=== PATIENT | female | born 1975 | race Caucasian/White ===

== ENCOUNTER → 2016-06-24 | Emergency (ER) | payer MEDICAID ==
[~2016-06-24] VITALS: Ht 157.5 cm; Wt 59.0 kg
[~2016-06-24] MED LIST: HALOPERIDOL LACTATE 5 MG/ML INJ VIAL IM ONE; HYDROcodone-ACET 5/325MG TAB PO ONE; IBUPROFEN 600 MG TAB PO ONE; KETOROLAC TROMETH 30 MG/ML 1ML VIAL IV ONE; KETOROLAC TROMETH 30 MG/ML 1ML VIAL ONE; LORazepam 2MG/ML-1ML VIAL IM ONE; SODIUM CHLORIDE 0.9% 1,000 ML IVB ONE
[2016-06-24 16:17] LABS: Basophils # (auto) 0 uL; Basophils % (auto) 0.4 % (0.0-2.0); DEFINITIVE VIEW TRANSMISSION; Eosinophils # (auto) 0.1 uL; Eosinophils % (auto) 1.1 % (0.0-7.0); Hematocrit 43.9 % (36.0-46.0); Hemoglobin 14.3 g/dL (12.2-16.2); Lymphocytes # (auto) 1.7 uL; Lymphocytes % (auto) 20.4 % (10.0-50.0); Mean Corpuscular Hemoglobin 26.7 pg (28.0-32.0); Mean Corpuscular Hgb Conc. 32.7 g/dL (32.0-36.0); Mean Corpuscular Volume 81.8 fL (80.0-100.0); Mean Platelet Volume 8.6 fL (7.4-10.4); Monocytes # (auto) 0.4 uL; Monocytes % (auto) 5.2 % (0.0-12.0); Neutrophils # (auto) 6.1 uL; Neutrophils % (auto) 72.9 % (37.0-80.0); Platelet Count (auto) 259 10^3/uL (140-450); Red Cell Distribution Width 14.6 % (11.6-16.0); White Blood Cell 8.4 10^3/uL (4.4-10.8)
[2016-06-24 16:46] LABS: Albumin 4.1 g/dL (3.4-5.0); Alkaline Phosphatase 121 U/L (45-117); Anion Gap 13 (5-15); Aspartate Aminotransferase 79 U/L (15-37); BUN/Creatinine Ratio 15.9; Bilirubin, Total 1.3 mg/dL (0.2-1.0); Blood Urea Nitrogen 13 mg/dL (7-18); Carbon Dioxide 25 mmol/L (21-32); Chloride 105 mmol/L (98-107); GFR African American 100 mL/min; GFR Non-African American 83 mL/min; Glucose 103 mg/dL (74-106); Sodium 143 mmol/L (136-145); Total Protein 8.2 g/dL (6.4-8.2)
[2016-06-24 16:48] LABS: Urine Bilirubin Negative (Negative); Urine Blood Negative /uL (Negative); Urine Color Yellow (Yellow); Urine Glucose Normal (Normal); Urine Mucus FEW (None Seen); Urine Nitrite Negative (Negative); Urine RBC 9 /hpf (0 - 4); Urine Squamous Epithelial Cell FEW /hpf (<5)
[2016-06-24 16:52] LABS: Urine Ketone 1+ (Negative)
[2016-06-24] MEDS: POTASSIUM CHL 20MEQ/100ML 100 ML IV SCH ×3 (17:25→21:14)
[2016-06-27 06:04] VITALS: BP 164/105
== END | disposition home or self-care (01) ==
LOC: ER 15:43 → EDBD 15:43
DX: G92 Toxic encephalopathy (principal); E87.6 Hypokalemia; I25.2 Old myocardial infarction; B19.20 Unspecified viral hepatitis C without hepatic coma; F15.159 Other stimulant abuse with stimulant-induced psychotic disorder, unspecified
CPT/HCPCS: 36415; 71010; 80053; 80320; 81001; 81025; 82962; 83735; 84443; 84484; 85025; 93005; 94761; 96361; 96372; 96374; 99285; G0434; J1630; J2060; J3480; J7030; 73502; J1885